=== PATIENT | male | born 1960 | race Caucasian/White ===

== ENCOUNTER 2018-11-16 15:33 | Emergency (ER) | payer OTHER, SELFPAY ==
[2018-11-16 15:34] VITALS: BP 168/68; PULSE 61; RESP 14; TEMP 36.7; O2SAT 98
--- NOTE | 2018-11-16 15:57 | ED_ITS ---
HPI - Extremity Problem General Chief complaint: Extremity Problem,Nontraumatic Stated complaint: ARM GOING NUMB Time Seen by Provider: 11/16/18 15:39 Source: patient Mode of arrival: ambulatory Limitations: no limitations History of Present Illness HPI Narrative: 57-year-old male here for evaluation of what he describes his weakness and tingling to his right hand. States that a couple weeks ago he did have pain in his right shoulder but that has since gone away. There is no specific trauma. He has noted that he has had some weakness with holding onto a coffee cup and also pressing buttons on a bermudez pad at work. He does not have a primary provider. Related Data Previous Rx's Medication Instructions Recorded prednisone 40 mg PO DAILY 5 Days #10 tab 11/16/18 Allergies Allergy/AdvReac Type Severity Reaction Status Date / Time No Known Drug Allergies Allergy Verified 11/16/18 15:42 Review of Systems Constitutional Denies fever(s) and Denies headache(s) ENT Ears, Nose, Mouth, and Throat: Denies headache(s) Cardiovascular Denies chest pain and Denies dyspnea Respiratory Denies dyspnea Gastrointestinal Gastrointestinal: Denies abdominal pain Musculoskeletal Comments: Right shoulder pain, weakness of the right hand Integumentary/Breasts Denies new lesions and Denies rash Neurologic Denies headache(s) Comments: Tingling to the right hand Hematologic/Lymphatic Denies easy bleeding and Denies easy bruising [facility] Medical History Patient denies medical problems (Acute) Social History Smoking Status: Current some day smoker Social History Smoking Status: Current some day smoker Exam Initial Vital Signs Initial Vital Signs: Vital Signs Temperature 98.1 F 11/16/18 15:34 Pulse Rate 61 11/16/18 15:34 Respiratory Rate 14 11/16/18 15:34 Blood Pressure 168/68 H 11/16/18 15:34 Pulse Oximetry 98 11/16/18 15:34 Const General: cooperative, comfortable, well developed, well groomed and No acute distress Orientation: alert, awake and oriented x3 HENMT Head: normal to inspection and normocephalic Resp Effort & Inspection: normal respiratory effort Auscultation: clear to auscultation bilaterally Cardio Rate: regular rate Rhythm: regular rhythm Pulses: radial pulses present on the right Skin Lesions: no lesions Rashes: no rashes Neuro General: alert and awake Cranial Nerves: CN's II-XI intact bilaterally Cognition: normal cognition Speech: speech normal Gait: normal gait Motor: muscle tone normal throughout, strength 5/5 throughout, no pronator drift, no movement abnormalities noted and No pronator drift Sensory Exam: no sensory deficits noted Extrem General: normal to inspection and capillary refill normal Psych Appearance: grossly normal and well kempt Course Orders Ordered: Discontinued Medications Ketorolac Tromethamine (Toradol) 30 mg IM NOW ONE Stop: 11/16/18 16:00 Last Admin: 11/16/18 16:02 Dose: 30 mg Vital Signs - 8 hr 11/16/18 15:34 Temperature 98.1 F Pulse Rate 61 Respiratory Rate 14 Blood Pressure 168/68 H Pulse Oximetry 98 MDM - Extremity (Nontraumatic) MDM Narrative Medical decision making narrative: Patient is neurovascularly intact. Has no objective neurologic findings on the exam. His strength is equal. Low suspicion for CVA, low suspicion for ACS. I do suspect radiculopathy most likely from cervical stenosis. Could also potentially be stenosis at the shoulder. Will start on a short course of steroids. Discussed use of nonsteroidal anti-inflammatories. He does have a primary provider but just does not see him/her. Discussed the importance of this to discuss further workup to include physical therapy and/or consultation for an MRI. Patient was given return precautions and follow-up instructions. He expressed understanding and agreement plan. Discharge Plan Departure Patient Disposition: Home Clinical Impression: Cervical radiculopathy Discharge Date/Time: 11/16/18 16:10 Instructions: DI for Cervical Radiculopathy Activity Restrictions/Additional Instructions: Tomorrow start taking Motrin/ibuprofen 600-800 mg 3 times a day with food. Contact the [facility] to schedule a follow-up appointment and to establish care with a primary provider to discuss further workup. Return to the emergency department for any new symptoms Prescriptions: New prednisone 20 mg tablet 40 mg PO DAILY 5 Days Qty: 10 RF: 0
[2018-11-16] MEDS: KETOROLAC 60 MG/2 ML VIAL 30 MG IM (16:02)
== END 2018-11-16 16:10 | disposition home or self-care (01) ==
PROVIDERS: Emergency Provider Emergency Medicine
DX: M54.12 Radiculopathy, cervical region (principal)
CPT/HCPCS: 96372; 99282; 99283; J1885